=== PATIENT | female | born 1955 | race Caucasian/White ===

== ENCOUNTER → 2023-12-15 08:23 | Outpatient (REF) | payer MEDICARE, OTHER, SELFPAY | LOC: RAD 08:23 | PROVIDERS: ATTENDING PHYSICIAN Internal Medicine Endocrinology, Diabetes & Metabolism; FAMILY PHYSICIAN Registered Nurse | DX: E04.2 Nontoxic multinodular goiter (principal) | CPT/HCPCS: 76536 ==

== ENCOUNTER 2024-03-16 09:38 | Outpatient (RCR) | payer MEDICARE, OTHER, SELFPAY | END 2024-03-16 10:53 | disposition home or self-care (01) | LOC: RPT 09:38 | PROVIDERS: ATTENDING PHYSICIAN Orthopaedic Surgery; FAMILY PHYSICIAN Registered Nurse | DX: M17.12 Unilateral primary osteoarthritis, left knee (principal); Z73.6 Limitation of activities due to disability | CPT/HCPCS: 97110; 97162 ==

== ENCOUNTER 2024-04-08 07:36 | Inpatient (IN) | payer MEDICARE, OTHER, SELFPAY ==
--- NOTE | 2024-03-02 12:08 | CM ---
Patient is scheduled for an elective L TKR on 04/08/24. Spoke with patient prior to surgery via telephone. Patient had a R TKR at in 2018. Reintroduced role of Orthopedic Navigator. Patient reports that she lives alone in a two story home. There
is one step to enter and a flight of steps to the second floor (right ascending rail). There is a powder room on the first floor. She currently functions independently. She has a rolling walker, cane and raised toilet seat. She has never had VN
services. PCP is Roel Bennett.
Discussed orthopedic program and post surgical plans. Reviewed anticipated length of stay and that goal is for her to return home at discharge. Also reviewed outpatient PT. Patient is in agreement with tentative plan and will go directly to
outpatient PT at [facility]. She states that her son will stay with her initially.
Patient will complete online education.
Plan: Orthopedic Navigator will remain available to assist with the care of patient and will reassess discharge needs after surgery.
[2024-03-17 08:52] VITALS: BMI 24.3
[2024-03-17 10:01] LABS: Hematocrit 37.6 % (37.0-47.0); Hemoglobin 12.6 g/dL (12.0-16.0); Mean Corp Hgb Conc. 33.5 g/dL (33.0-37.0); Mean Corpuscular Volume 86.6 fL (81.0-99.0); Mean Platelet Volume 9.6 fL (7.4-10.4); Platelet Count 187 10^3/uL (130-400); Red Blood Cell Count 4.34 10^6/uL (4.20-5.40); Red Cell Dist. Width 12.9 % (11.5-14.5); White Blood Cell Count 3.3 10^3/uL (4.8-10.8)
[2024-03-17 10:19] LABS: ALT (SGPT) 15 U/L (0-35); AST (SGOT) 24 U/L (14-36); Albumin 4.1 g/dl (3.5-5.0); Alkaline Phosphatase 83 U/L (38-126); Blood Urea Nitrogen 16 mg/dl (7-17); Calcium 9.7 mg/dl (8.4-10.2); Carbon Dioxide 27 mmol/L (22-30); Chloride 107 mmol/L (98-107); Estimated Creatinine Clearance 66 ml/min; Glucose 106 mg/dl (70-99); Potassium 4.3 mmol/L (3.5-5.1); Sodium 143 mmol/L (135-145); Total Bilirubin 0.5 mg/dl (0.2-1.3); Total Protein 6.8 g/dl (6.3-8.2); eGFR > 60.00
[2024-03-17 12:15] LABS: Glycohemoglobin (HgbA1c) 5.7 % (4.0-5.6)
[2024-03-17 14:56] VITALS: BMI 24.3
[2024-04-08] VITALS (16 sets, daily range): BP systolic 110–157; BP diastolic 52–81; PULSE 81; O2SAT 98; BMI 24.5
[2024-04-08] MEDS: CELEBREX 200 MG PO (08:09)
[2024-04-08] MEDS: TYLENOL 650 MG PO ×4 (08:09→23:07)
[2024-04-08] MEDS: NORMOSOL-R 1000 IV ×2 (08:28→11:32)
[2024-04-08] MEDS: VANCOCIN 200 IV (08:28)
[2024-04-08] MEDS: NORCO 5/325 1 TABLET PO (11:32)
--- NOTE | 2024-04-08 13:20 | PTCARENOTE ---
Pt received from the PACU via bed. Transport was w/o incident. Pt is AAOx3, HRR, Lungs clear to auscultation, Pulse ox 99%RA. Pt's Left knee with Aquacell dressing C/D/I, no drainage noted. Pt with strong Left pedal pulses. Pt reports normal
sensation to left leg. Pt able to point/flex left foot and wiggle toes. Ice pack applied to left knee as ordered. Vss,.Pt is afebrile. Pt denies pain or nausea, Pt instructed on plan of care. Pt verbalizes understanding of instructions. Call hernandez is
within reach.
--- NOTE | 2024-04-08 14:50 | W.PN.UPDATE ---
Update Note
Progress Note Update
Patient doing well postop L TKR. VSS. Pulm: nonlabored. CV: regular. LLE: Dressing CDI. NVI distally. Calf soft. Postop xray as expected. ASA for DVT prophylaxis. Working with PT. Plan for discharge home tomorrow with outpatient PT.
[2024-04-08] MEDS: ANCEF 5 IV ×2 (18:06→23:08)
[2024-04-08] MEDS: ASPIRIN 325 MG PO (18:06)
[2024-04-08] MEDS: TORADOL 15 MG IV (19:31)
[2024-04-08] MEDS: SENOKOT 17.1999999999999993 MG PO (19:32)
[2024-04-08] MEDS: BACTROBAN 2% OINTMENT 1 APPLIC NASAL (19:32)
[2024-04-08] MEDS: DECADRON 4 MG PO (19:33)
[2024-04-08] MEDS: COLACE 100 MG PO (19:33)
[2024-04-08] MEDS: NEURONTIN 300 MG PO (21:02)
[2024-04-09 02:59] VITALS: BP 131/61
[2024-04-09] MEDS: TYLENOL 650 MG PO ×3 (03:00→12:22)
[2024-04-09 07:12] VITALS: BP 137/66
--- NOTE | 2024-04-09 07:12 | W.PN.ORTHO ---
Today's Communication / Plan
-
Plan for discharge home after PT today with outpatient PT on Friday
Assessment
.
Distal Motor Intact: Yes
Dressing:
Clean, dry and intact.
Assessment:
Doing well postop L TKR
Plan
.
Surgery / Date: 04/08/2024 L TKR
DVT Prophylaxis: Aspirin
Activity:
Out of bed.
PT/OT
Discharge Plan: Home w/ Outpatient PT
Subjective
.
.:
Patient resting comfortably. Tolerating pain with minimal pain meds. OOB yesterday with PT
Vital Signs and Labs
.
Vital Signs and Labs:
Lab Results
03/17/24 08:45
03/17/24 08:45
Temp Pulse Resp BP Pulse Ox
98.4 F 85 14 131/61 97
04/09/24 02:59 04/09/24 02:59 04/09/24 02:59 04/09/24 02:59 04/09/24 02:59
Non-invasive Hgb result: 13.1
Physical Exam
-
Pulm: nonlabored
CV: regular
LLE: Dressing CDI. NVI distally. Calf soft. Able to fully extend
[2024-04-09 09:26] VITALS: BP 122/61; PULSE 80; O2SAT 100
[2024-04-09] MEDS: VANCOCIN 200 IV (09:30)
[2024-04-09] MEDS: COLACE 100 MG PO (09:33)
[2024-04-09] MEDS: SENOKOT 17.1999999999999993 MG PO (09:33)
[2024-04-09] MEDS: MOBIC 15 MG PO (09:33)
[2024-04-09] MEDS: DECADRON 4 MG PO (09:33)
[2024-04-09] MEDS: TORADOL 15 MG IV (09:34)
[2024-04-09] MEDS: ASPIRIN 325 MG PO (09:34)
[2024-04-09] MEDS: BACTROBAN 2% OINTMENT 1 APPLIC NASAL (09:34)
--- NOTE | 2024-04-09 10:38 | CM ---
Addendum entered by AMILCAR Lora 04/09/24 10:47:
PT recommended another Rolling walker in house, one on each level. Script provided to PT to issue walker.
Original Note:
Reviewed chart and held rounds with PT, OT and nursing. Patient admitted as planned for elective l TKR. Met with patient at bedside. Confirmed information previously obtained for assessment. Also discussed discharge plans. The plan is for patient to
return home at discharge.She will have support from her son when she goes home. Patient will go directly to outpatient PT and will go to outpatient PT. She has an appointment scheduled for Friday, 04/12 Reviewed need to schedule appointment with
Dr. Paredes's office in two weeks for removal of stephanie.
Patient has a rolling walker, cane, raised toilet seat.
She will use [facility] pharmacy for discharge prescriptions.
[2024-04-09 11:34] VITALS: BP 138/69
--- NOTE | 2024-04-09 11:45 | W.PN.ORTHO ---
Today's Communication / Plan
-
d/c
Assessment
.
Distal Motor Intact: Yes
Dressing:
Clean, dry and intact.
Assessment:
MRSA on nasal screen--s/p IV Vanco-continue Mupirocin bid x14d
Plan
.
Surgery / Date: 04/08/[address] Paredes 04/08/24
DVT Prophylaxis: Aspirin
Activity:
Out of bed.
PT/OT
Discharge Plan: Home w/ Outpatient PT
Subjective
.
.:
Patient resting comfortably.
Vital Signs and Labs
.
Vital Signs and Labs:
Lab Results
03/17/24 08:45
03/17/24 08:45
Temp Pulse Resp BP Pulse Ox
98.2 F 79 17 138/69 100
04/09/24 11:34 04/09/24 11:34 04/09/24 11:34 04/09/24 11:34 04/09/24 11:34
Non-invasive Hgb result: 13.1
Physical Exam
-
HEENT: No pallor, cyanosis, or jaundice. Throat clear.
NECK: Supple. No JVD.
RESPIRATORY: Lungs clear to auscultation.
CVS: S1, S2 normal. RRR.� No murmur, rub or gallop.
ABDOMEN: Soft, non-tender. No distension. BS+/normal.
EXTREMITIES: strength equal, no calf pain with palpation
MACHINE OPERATOR PACKAGING: AOx3. No focal deficits. lead electrical controls engineer grossly intact
--- NOTE | 2024-04-09 12:09 | W.DS.TRANS ---
DC Summary - Shop Welder
-
Discharge Instructions:
Sleep Apnea Risk Low
Discharge Diagnosis/Procedures L TKA Dr. Paredes 04/08/24
Diet As tolerated
Driving Restrictions No driving
Bathing Restrictions OK to Shower
Other Services PT
Instructions:
Stand-Alone Forms: Total Hip/Knee Replacement D/C
Changes to Home Medications: Yes
Discharge Medications:
DC Medications w/original date entered in [facility]
calcium carbonate 600 mg-vitamin D3 10 mcg (400 unit) tablet (Calcium 600 + D(3)) 1 tab PO DAILY Supplement 03/10/24
cholecalciferol (vitamin D3) 25 mcg (1,000 unit) tablet (Vitamin D3) 25 mcg PO DAILY Supplement 03/10/24
cyanocobalamin (vitamin B-12) 500 mcg tablet (Vitamin B-12) 500 mcg PO DAILY Supplement 03/10/24
mupirocin 2 % topical ointment 1 applic topical BID infection prevention #1 tube 03/17/24
cjyikbgmxsme-xapfgpkx-tgjkcl tablet (Multivitamin 50 Plus tablet) 1 tab PO DAILY Supplement 04/08/24
acetaminophen 325 mg capsule (Tylenol) 650 mg (2 x 325 mg) PO QID #2 caps 04/09/24
aspirin 325 mg tablet 325 mg PO DAILY blood clot prevention #1 tab 04/09/24
dexamethasone 4 mg tablet 4 mg PO BID inflammation #6 tabs 04/09/24
docusate sodium 100 mg capsule (Colace) 100 mg PO BID stool softner #1 cap 04/09/24
famotidine 20 mg tablet 20 mg PO HS GI prophylaxis #30 tabs 04/09/24
gabapentin 300 mg capsule 300 mg PO HS sleep/pain #10 caps 04/09/24
hydrocodone 5 mg-acetaminophen 325 mg tablet 1 tab PO Q6H PRN 1 tab moderate pain or 2 if severe #30 tabs 04/09/24
magnesium hydroxide 400 mg/5 mL oral suspension (Milk of Magnesia) 30 ml PO HS PRN Constipation #1 mL 04/09/24
meloxicam 15 mg tablet 15 mg PO DAILY anti-inflammatory #14 tabs 04/09/24
sennosides 8.6 mg tablet (Senokot) 17.2 mg (2 x 8.6 mg) PO BID laxative #2 tabs 04/09/24
Home Medication Changes
dexamethasone 4 mg tablet 4 mg PO BID inflammation #6 tabs 04/09/24
docusate sodium 100 mg capsule (Colace) 100 mg PO BID stool softner #1 cap 04/09/24
famotidine 20 mg tablet 20 mg PO HS GI prophylaxis #30 tabs 04/09/24
gabapentin 300 mg capsule 300 mg PO HS sleep/pain #10 caps 04/09/24
hydrocodone 5 mg-acetaminophen 325 mg tablet 1 tab PO Q6H PRN 1 tab moderate pain or 2 if severe #30 tabs 04/09/24
magnesium hydroxide 400 mg/5 mL oral suspension (Milk of Magnesia) 30 ml PO HS PRN Constipation #1 mL 04/09/24
meloxicam 15 mg tablet 15 mg PO DAILY anti-inflammatory #14 tabs 04/09/24
Pending Results: No
[2024-04-09 12:23] VITALS: BP 151/70; PULSE 78; O2SAT 100
== END 2024-04-09 13:30 | disposition home or self-care (01) | DRG 470 ==
LOC: 2 SOUTH 07:36
PROVIDERS: ADMITTING PHYSICIAN Orthopaedic Surgery; FAMILY PHYSICIAN Registered Nurse
PROC: 0SRD0J9 Replacement of Left Knee Joint with Synthetic Substitute, Cemented, Open Approach (ICD-10-PCS; 2024-04-08)
DX: M17.12 Unilateral primary osteoarthritis, left knee (principal); E78.5 Hyperlipidemia, unspecified; M85.80 Other specified disorders of bone density and structure, unspecified site; K21.9 Gastro-esophageal reflux disease without esophagitis; D72.819 Decreased white blood cell count, unspecified; E53.8 Deficiency of other specified B group vitamins; E01.0 Iodine-deficiency related diffuse (endemic) goiter; R73.01 Impaired fasting glucose; Z96.651 Presence of right artificial knee joint; Z85.3 Personal history of malignant neoplasm of breast; Z92.21 Personal history of antineoplastic chemotherapy; Z92.3 Personal history of irradiation
CPT/HCPCS: 36415; 73560; 80053; 83036; 85027; 87070; 87147; 93005; 97110; 97116; 97162; 97165; 97535; C1713; C1776

== ENCOUNTER 2024-04-15 10:31 | Outpatient (RCR) | payer MEDICARE, OTHER, SELFPAY | END 2024-04-15 23:59 | disposition home or self-care (01) | LOC: RPT 10:31 | PROVIDERS: ATTENDING PHYSICIAN Orthopaedic Surgery; FAMILY PHYSICIAN Registered Nurse | DX: Z47.1 Aftercare following joint replacement surgery (principal); Z73.6 Limitation of activities due to disability; R26.2 Difficulty in walking, not elsewhere classified; M62.81 Muscle weakness (generalized); Z96.652 Presence of left artificial knee joint | CPT/HCPCS: 97010; 97110; 97116; 97162; 97535 ==

== ENCOUNTER 2024-05-18 09:44 | Outpatient (RCR) | payer MEDICARE, OTHER, SELFPAY | END 2024-05-18 23:59 | disposition home or self-care (01) | LOC: RPT 09:44 | PROVIDERS: ATTENDING PHYSICIAN Orthopaedic Surgery; FAMILY PHYSICIAN Registered Nurse | DX: Z47.1 Aftercare following joint replacement surgery (principal); Z96.652 Presence of left artificial knee joint; R26.2 Difficulty in walking, not elsewhere classified; M62.81 Muscle weakness (generalized) | CPT/HCPCS: 97010; 97110; 97112 ==

== ENCOUNTER 2024-06-15 10:24 | Outpatient (RCR) | payer MEDICARE, OTHER, SELFPAY | END 2024-06-15 11:59 | disposition home or self-care (01) | LOC: RPT 10:24 | PROVIDERS: ATTENDING PHYSICIAN Orthopaedic Surgery; FAMILY PHYSICIAN Registered Nurse | DX: Z47.1 Aftercare following joint replacement surgery (principal); Z73.6 Limitation of activities due to disability; R26.2 Difficulty in walking, not elsewhere classified; M62.81 Muscle weakness (generalized); Z96.652 Presence of left artificial knee joint | CPT/HCPCS: 97010; 97110; 97112 ==

== ENCOUNTER → 2024-08-03 08:58 | Outpatient (REF) | payer MEDICARE, OTHER, SELFPAY ==
[2024-08-03 09:52] LABS: % Basophils 0.7 % (0-2); % Eosinophils 4.7 % (0-6); % Immature Granulocytes 0.2 % (0-0.5); % Lymphocytes 28.5 % (20.5-51.1); % Monocytes 6.7 % (1.7-9.3); % Neutrophils 59.2 % (42.2-75.2); Absolute Eosinophils 0.2 10^3/uL (0-0.7); Absolute Lymphocytes 1.2 10^3/uL (1.2-3.4); Absolute Monocytes 0.3 10^3/uL (0.1-0.6); Absolute Neutrophils 2.4 10^3/uL (1.4-6.5); Hemoglobin 13.1 g/dL (12.0-16.0); Mean Corp Hgb Conc. 32.8 g/dL (33.0-37.0); Mean Corpuscular Hgb 28.1 pg (27.0-31.0); Mean Corpuscular Volume 85.8 fL (81.0-99.0); Mean Platelet Volume 9.9 fL (7.4-10.4); Nucleated Red Blood Cells % 0 %; Platelet Count 178 10^3/uL (130-400); Red Blood Cell Count 4.66 10^6/uL (4.20-5.40); Red Cell Dist. Width 12.8 % (11.5-14.5)
[2024-08-03 10:28] LABS: ALT (SGPT) 17 U/L (0-35); AST (SGOT) 25 U/L (14-36); Albumin 4.1 g/dl (3.5-5.0); Alkaline Phosphatase 79 U/L (38-126); Blood Urea Nitrogen 13 mg/dl (7-17); Calcium 9.7 mg/dl (8.4-10.2); Carbon Dioxide 29 mmol/L (22-30); Chloride 104 mmol/L (98-107); Glucose 100 mg/dl (70-99); HDL Cholesterol 81 mg/dl; LDL Cholesterol, Calculated 128 mg/dl; Potassium 4.5 mmol/L (3.5-5.1); Sodium 144 mmol/L (135-145); Total Bilirubin 0.7 mg/dl (0.2-1.3); Total Cholesterol 226 mg/dl (50-199); Total Protein 6.9 g/dl (6.3-8.2); Triglyceride 87 mg/dl (10-149); Very Low Density Lipoprotein 17 mg/dl (0-30); eGFR > 60.00
[2024-08-03 10:56] LABS: Glycohemoglobin (HgbA1c) 5.6 % (4.0-5.6)
[2024-08-03 11:17] LABS: Vitamin B12 535 pg/ml (239-931)
== END ==
LOC: REG 08:58
PROVIDERS: ATTENDING PHYSICIAN Registered Nurse
DX: M85.89 Other specified disorders of bone density and structure, multiple sites (principal); R73.01 Impaired fasting glucose; E78.5 Hyperlipidemia, unspecified; E53.8 Deficiency of other specified B group vitamins; E01.0 Iodine-deficiency related diffuse (endemic) goiter
CPT/HCPCS: 36415; 80053; 80061; 82607; 83036; 84443; 85025

== ENCOUNTER → 2024-09-07 08:07 | Outpatient (REF) | payer MEDICARE, OTHER, SELFPAY | LOC: WDC 08:07 | PROVIDERS: ATTENDING PHYSICIAN Surgery; FAMILY PHYSICIAN Registered Nurse | DX: Z12.31 Encounter for screening mammogram for malignant neoplasm of breast (principal); Z85.3 Personal history of malignant neoplasm of breast; C50.411 Malignant neoplasm of upper-outer quadrant of right female breast; Z17.0 Estrogen receptor positive status [ER+] | CPT/HCPCS: 77063; 77067 ==

== ENCOUNTER → 2024-11-04 08:33 | Outpatient (REF) | payer MEDICARE, OTHER, SELFPAY | LOC: WDC 08:33 | PROVIDERS: ATTENDING PHYSICIAN Surgery; FAMILY PHYSICIAN Registered Nurse | DX: R92.2 Inconclusive mammogram (principal); C50.411 Malignant neoplasm of upper-outer quadrant of right female breast; Z17.0 Estrogen receptor positive status [ER+] | CPT/HCPCS: 76641 ==

== ENCOUNTER → 2025-02-08 08:04 | Outpatient (REF) | payer MEDICARE, OTHER, SELFPAY ==
[2025-02-08 09:22] LABS: ALT (SGPT) 19 U/L (0-35); AST (SGOT) 22 U/L (14-36); Albumin 3.8 g/dl (3.5-5.0); Alkaline Phosphatase 80 U/L (38-126); Blood Urea Nitrogen 15 mg/dl (7-17); Calcium 9.9 mg/dl (8.4-10.2); Carbon Dioxide 30 mmol/L (22-30); Chloride 107 mmol/L (98-107); Glucose 106 mg/dl (70-99); HDL Cholesterol 82 mg/dl; LDL Cholesterol, Calculated 55 mg/dl; Sodium 145 mmol/L (135-145); Total Bilirubin 0.7 mg/dl (0.2-1.3); Total Cholesterol 147 mg/dl (50-199); Total Protein 6.4 g/dl (6.3-8.2); Triglyceride 52 mg/dl (10-149); Very Low Density Lipoprotein 10 mg/dl (0-30); eGFR > 60.00
== END ==
LOC: REG 08:04
PROVIDERS: ATTENDING PHYSICIAN Registered Nurse
DX: R73.01 Impaired fasting glucose (principal); E78.5 Hyperlipidemia, unspecified
CPT/HCPCS: 36415; 80053; 80061

== ENCOUNTER → 2025-08-05 09:06 | Outpatient (REF) | payer MEDICARE, OTHER, SELFPAY ==
[2025-08-05 10:36] LABS: Hematocrit 41.2 % (37.0-47.0); Hemoglobin 13.2 g/dL (12.0-16.0); Mean Corp Hgb Conc. 32.0 g/dL (33.0-37.0); Mean Corpuscular Volume 91.4 fL (81.0-99.0); Nucleated Red Blood Cells % 0 %; Platelet Count 174 10^3/uL (130-400); Red Cell Dist. Width 13.3 % (11.5-14.5)
[2025-08-05 11:08] LABS: ALT (SGPT) 21 U/L (0-35); AST (SGOT) 26 U/L (14-36); Alkaline Phosphatase 88 U/L (38-126); Calcium 9.7 mg/dl (8.4-10.2); Chloride 106 mmol/L (98-107); HDL Cholesterol 87 mg/dl; Potassium 4.4 mmol/L (3.5-5.1); Sodium 140 mmol/L (135-145)
[2025-08-05 11:17] LABS: Albumin 4.1 g/dl (3.5-5.0); Blood Urea Nitrogen 16 mg/dl (7-17); Carbon Dioxide 28 mmol/L (22-30); Glucose 100 mg/dl (70-99); Total Protein 7.0 g/dl (6.3-8.2); eGFR > 60.00
[2025-08-05 11:21] LABS: Vitamin D, 25-OH*** 51.5 ng/mL (30-80)
[2025-08-05 11:23] LABS: LDL Cholesterol, Calculated 63 mg/dl; Very Low Density Lipoprotein 11 mg/dl (0-30)
[2025-08-05 11:33] LABS: Glycohemoglobin (HgbA1c) 5.5 % (4.0-5.6)
[2025-08-05 18:35] LABS: Vitamin B12 554 pg/ml (239-931)
== END ==
LOC: REG 09:06
PROVIDERS: ATTENDING PHYSICIAN Registered Nurse
DX: M85.89 Other specified disorders of bone density and structure, multiple sites (principal); R73.01 Impaired fasting glucose; E78.5 Hyperlipidemia, unspecified; E01.0 Iodine-deficiency related diffuse (endemic) goiter; E53.8 Deficiency of other specified B group vitamins
CPT/HCPCS: 36415; 80053; 80061; 82306; 82607; 83036; 84443; 85025

== ENCOUNTER → 2025-09-08 13:06 | Outpatient (REF) | payer MEDICARE, OTHER, SELFPAY | LOC: WDC 13:06 | PROVIDERS: ATTENDING PHYSICIAN Surgery; FAMILY PHYSICIAN Registered Nurse | DX: Z12.31 Encounter for screening mammogram for malignant neoplasm of breast (principal) | CPT/HCPCS: 77063; 77067 ==